=== PATIENT | female | born 1980 | race Two or more races ===

== ENCOUNTER 2020-10-10 10:05 | Outpatient (REF) | payer OTHER, SELFPAY ==
--- NOTE | ~2020-10-10 | MM_ITS ---
EXAMINATION: MM SCREENING DIGITAL BREAST TOMOSYNTHESIS, BILATERAL CLINICAL INFORMATION: Screening. Asymptomatic. No prior breast imaging. Age 39. No known family history breast cancer. The lifetime risk of breast cancer based on the Tyrer-Cuzick Model is 7%. COMPARISON: None (current study represents initial baseline exam). TECHNIQUE: Digital breast tomosynthesis is performed in both the craniocaudal and mediolateral oblique views along with computer-aided detection (CAD). Synthesized 2D images are generated from the tomosynthesis. FINDINGS: The breasts are heterogeneously dense, which may obscure small masses (ACR BI-RADS breast composition Category c). Breast tissue composition borders on average fibroglandular. There is inhomogeneous parenchymal pattern. The right breast shows no significant mass or architectural abnormality. Neither breast shows abnormal calcifications. The axilla and skin contours are unremarkable. The left CC view has benign-appearing circumscribed nodule 0.7 x 0.6 cm mid 9:00 position. Lesion not well appreciated on MLO view due to superimposed parenchymal density. Patient will be recalled for targeted ultrasound to fully characterize baseline appearance. MM/MM tomosynthesis screening BI IMPRESSION: 1. Left: Circumscribed nodule mid medial breast under 1 cm. 2. Right: No mammographic evidence of malignancy. ASSESSMENT: BI-RADS 0: Incomplete - Need Additional Imaging Evaluation RECOMMENDATION: 1. Targeted ultrasound left breast. 2. Radiology department staff will contact the patient for additional imaging. This patient's information was entered into a reminder system with a target due date for their next mammogram.
== END 2020-10-10 10:06 | disposition home or self-care (01) ==
LOC: HO.MAMMO 10:05
PROVIDERS: PCP Family Medicine; Visit Provider Family Medicine
DX: Z12.31 Encounter for screening mammogram for malignant neoplasm of breast (principal)
CPT/HCPCS: 77063; 77067

== ENCOUNTER 2020-10-15 13:01 | Outpatient (REF) | payer OTHER, SELFPAY ==
--- NOTE | ~2020-10-15 | US_ITS ---
EXAMINATION: US DIAGNOSTIC ULTRASOUND BREAST, LEFT CLINICAL INFORMATION: Circumscribed nodule 0.7 x 0.6 cm medial left breast at baseline exam. COMPARISON: Baseline mammography 10/10/2020. TECHNIQUE: Ultrasound left breast is targeted to the medial breast. Grayscale imaging and color Doppler are performed without and with harmonics. FINDINGS: There is no focal suspicious finding. There is no cystic or solid mass, architectural abnormality, duct ectasia, or edema in the soft tissue planes. There is no ultrasound correlate for the benign-appearing nodule noted at initial screening. Results are discussed with the patient at time of visit, using an diplomatic interpreter/translator. Management plan is for short interval follow-up left mammography in 6 months. US/US breast LT limited IMPRESSION: No ultrasound correlate for benign-appearing nodule medial left breast noted at baseline exam. ASSESSMENT: BI-RADS 3: Probably Benign RECOMMENDATION: Diagnostic left mammography in 6 months. This patient's information was entered into a reminder system with a target due date for their next mammogram.
== END 2020-10-15 13:02 | disposition home or self-care (01) ==
LOC: HO.MAMMO 13:01
PROVIDERS: Visit Provider Family Medicine
DX: N64.89 Other specified disorders of breast (principal)
CPT/HCPCS: 76642

== ENCOUNTER 2021-04-18 13:10 | Outpatient (REF) | payer OTHER, SELFPAY ==
--- NOTE | ~2021-04-18 | MM_ITS ---
EXAMINATION: MM DIAGNOSTIC DIGITAL BREAST TOMOSYNTHESIS, BILATERAL CLINICAL INFORMATION: Short interval six-month follow-up probable benign nodularity mid medial left breast initially noted at baseline exam. TC score 8%. COMPARISON: Mammography: 10/10/2020 (baseline); targeted left breast ultrasound 10/15/2020. TECHNIQUE: Digital breast tomosynthesis is performed in both the craniocaudal and mediolateral oblique views along with computer-aided detection (CAD). Synthesized 2D images are generated from the tomosynthesis. FINDINGS: The breasts are heterogeneously dense, which may obscure small masses (ACR BI-RADS breast composition Category c). Parenchymal pattern is similar to prior baseline exam. There is no developing density or interval mass or interval architectural abnormality. Small benign-appearing nodular asymmetry mid medial left breast best seen on tomography is similar in size. There are scattered punctate calcifications again seen. The axilla and skin contours are unremarkable. Results are provided to the patient at time of visit by the technologist. MM/MM tomosynthesis diagnostic LT IMPRESSION: There are no significant changes from prior baseline exam. ASSESSMENT: BI-RADS 3: Probably Benign RECOMMENDATION: Diagnostic mammography at time of annual exam, due in 6 months. This patient's information was entered into a reminder system with a target due date for their next mammogram.
== END 2021-04-18 13:11 | disposition home or self-care (01) ==
LOC: HO.MAMMO 13:10
PROVIDERS: Visit Provider Family Medicine
DX: N63.25 Unspecified lump in the left breast, overlapping quadrants (principal)
CPT/HCPCS: 77061; 77065

== ENCOUNTER 2021-10-17 12:53 | Outpatient (REF) | payer OTHER, SELFPAY ==
--- NOTE | ~2021-10-17 | MM_ITS ---
EXAMINATION: MM DIAGNOSTIC DIGITAL BREAST TOMOSYNTHESIS, BILATERAL CLINICAL INFORMATION: Due for yearly. Also follow-up probable benign ultrasound occult smooth nodular asymmetry mid medial left breast initially noted at baseline exam 2020. The lifetime risk of breast cancer based on the Tyrer-Cuzick Model is 9%. COMPARISON: Mammography: 04/18/2021, 10/10/2020 (baseline, BI-RADS 0); targeted left breast ultrasound 10/15/2020. TECHNIQUE: Digital breast tomosynthesis is performed in both the craniocaudal and mediolateral oblique views along with computer-aided detection (CAD). Synthesized 2D images are generated from the tomosynthesis. FINDINGS: The breasts are heterogeneously dense, which may obscure small masses (ACR BI-RADS breast composition Category c). Parenchymal pattern is similar to prior studies. There is no developing density or interval architectural changes. No abnormal calcifications. The small nodular asymmetric density mid medial left breast on CC tomography is stable. They will be reassessed again at next bilateral annual mammography to conclude long-term surveillance. The axilla and skin contours are unremarkable. Results are provided to the patient at time of visit by the technologist. MM/MM tomosynthesis diagnostic BI IMPRESSION: Left: -Benign-appearing nodular asymmetric density mid medial breast on CC tomography, stable. Right: -No mammographic evidence of malignancy. ASSESSMENT: BI-RADS 3: Probably Benign RECOMMENDATION: Diagnostic mammography at time of next annual exam, due in 12 months. This patient's information was entered into a reminder system with a target due date for their next mammogram.
== END 2021-10-17 12:54 | disposition home or self-care (01) ==
LOC: HO.MAMMO 12:53
PROVIDERS: PCP Family Medicine; Visit Provider Family Medicine
DX: N64.89 Other specified disorders of breast (principal)
CPT/HCPCS: 77062; 77066

== ENCOUNTER 2022-10-17 12:19 | Outpatient (REF) | payer SELFPAY ==
--- NOTE | ~2022-10-17 | MM_ITS ---
EXAMINATION: MM DIAGNOSTIC DIGITAL BREAST TOMOSYNTHESIS, BILATERAL CLINICAL INFORMATION: Left breast diagnostic 6 month follow-up small nodular asymmetric density, ultrasound of cold, concluding two-year surveillance. Patient is also due for bilateral screening examination. The lifetime risk of breast cancer based on the Tyrer-Cuzick Model is 8.8%. COMPARISON: Mammography: 10/17/2021, 04/18/2021, 10/10/2020 mammography, 10/15/2020 left breast ultrasound. TECHNIQUE: Digital breast tomosynthesis is performed in both the craniocaudal and mediolateral oblique views along with computer-aided detection (CAD). Synthesized 2D images are generated from the tomosynthesis. FINDINGS: The breasts are heterogeneously dense, which may obscure small masses (ACR BI-RADS breast composition Category c). There is a stable small nodular focal asymmetry in the mid medial left breast seen on the CC projection, entirely unchanged from prior exams. Again, no definitive correlate on the right MLO projection. This concludes two-year diagnostic follow-up, establishing benignity. No further follow-up recommended. The dense somewhat nodular parenchymal pattern is overall unchanged compared with prior studies. Fine loosely grouped punctate calcifications are again noted within the dense breast parenchyma bilaterally, suggesting benign etiology such as adenosis. No developing suspicious calcifications, masses, or architectural distortion. Results are provided to the patient at time of visit by the technologist. MM/MM tomosynthesis diagnostic BI IMPRESSION: Stable benign findings bilateral breasts. No findings suspicious for malignancy. Recommendation resume routine annual screening mammography. ASSESSMENT: BI-RADS BI-RADS 2 - Benign Findings RECOMMENDATION: 1 year F/U This patient's information was entered into a reminder system with a target due date for their next mammogram.
== END 2022-10-17 12:20 | disposition home or self-care (01) ==
LOC: HO.MAMMO 12:19
PROVIDERS: PCP Family Medicine; Visit Provider Family Medicine
DX: N64.89 Other specified disorders of breast (principal)
CPT/HCPCS: 77062; 77066

== ENCOUNTER → 2022-10-17 13:00 | Outpatient (BNV) | payer SELFPAY | PROVIDERS: PCP Family Medicine; Visit Provider Radiology Diagnostic Radiology | DX: N63.20 Unspecified lump in the left breast, unspecified quadrant (principal) | CPT/HCPCS: 77062; 77066 ==

== ENCOUNTER 2023-03-19 10:42 | Outpatient (REF) | payer OTHER, SELFPAY ==
--- NOTE | ~2023-03-19 | XR_ITS ---
EXAMINATION: XR CHEST CLINICAL INFORMATION: Chest pain COMPARISON: None available. TECHNIQUE: 2 views of the chest were obtained. FINDINGS: Trace left-sided pleural effusion with subjacent atelectasis. Right basilar atelectasis. No pneumothorax. Trachea is midline. Cardiac mediastinal silhouette is not enlarged. Osseous structures are intact. Soft tissues are unremarkable. XR/XR chest 2V IMPRESSION: 1. Trace left-sided pleural effusion with subjacent atelectasis. 2. Right basilar atelectasis.
== END 2023-03-19 10:43 | disposition home or self-care (01) ==
LOC: HO.HHCX 10:42
PROVIDERS: Visit Provider Family Medicine
DX: R07.89 Other chest pain (principal)
CPT/HCPCS: 71046

== ENCOUNTER 2023-03-25 09:17 | Outpatient (REF) | payer SELFPAY ==
--- NOTE | ~2023-03-25 | XR_ITS ---
EXAMINATION: XR CHEST CLINICAL INFORMATION: Blunted CP angle. COMPARISON: Chest 03/19/2023. TECHNIQUE: 2 views of the chest were obtained. FINDINGS: The lungs are expanded with mild blunting of left CP angle from pleural effusion or thickening. Rest of lungs are expanded and clear. Heart size and pulmonary vascularity is normal. No gross bony abnormality seen. XR/XR chest 2V IMPRESSION: Mild blunting of left CP angle from pleural effusion or thickening. No change from 03/19/2023
== END 2023-03-25 09:18 | disposition home or self-care (01) ==
LOC: HO.HHCX 09:17
PROVIDERS: Visit Provider Family Medicine
DX: R93.89 Abnormal findings on diagnostic imaging of other specified body structures (principal)
CPT/HCPCS: 71046

== ENCOUNTER 2024-03-23 08:42 | Outpatient (REF) | payer SELFPAY ==
[2024-03-23 11:08] LABS: MANUAL DIFF FLAG NO
[2024-03-23 11:15] LABS: Basophils Percent Auto 0.8 % (0-2); Eosinophils Absolute Auto 0.2 X10*3/uL (0.0-0.4); Eosinophils Percent Auto 4.5 % (0-4); Hematocrit 39.4 % (37.0-47.0); Hemoglobin 13.5 g/dl (12.0-16.0); Imm Gran Abs Auto 0.02 X10*3/uL (0.00-0.03); Imm Gran Pct Auto 0.4 % (0.0-0.4); Lymphocytes Absolute Auto 1.4 X10*3/uL (1.2-4.9); Lymphocytes Percent Auto 26.5 % (20-40); Mean Corpuscular HGB Conc 34.3 g/dl (31.0-35.0); Mean Corpuscular Hemoglobin 30.5 pg (27.0-33.0); Mean Corpuscular Volume 88.9 fL (80.0-98.0); Mean Platelet Volume 9.5 fL (9.4-12.3); Monocytes Absolute Auto 0.3 X10*3/uL (0.1-1.2); Monocytes Percent Auto 6.7 % (2-11); Neutrophils Absolute Auto 3.1 x10*3/uL (2.0-8.3); Neutrophils Percent Auto 61.1 % (45-73); Platelet Count 374 X10*3/uL (160-400); Red Blood Count 4.43 X10*6/uL (4.20-5.50); Red Cell Distribution Width 11.8 % (11.0-16.0); White Blood Count 5.1 X10*3/uL (4.8-10.8)
[2024-03-23 11:30] LABS: Alanine Aminotransferase 13 U/L (0-31); Albumin Level 4.1 g/dL (3.5-5.0); Alkaline Phosphatase 51 U/L (39-117); Anion Gap 6 (12-20); Aspartate Amino Transferase 23 U/L (5-31); Bilirubin Direct 0.1 mg/dL (0.0-0.5); Bilirubin Total 0.6 mg/dL (0.0-1.0); Blood Urea Nitrogen 9 mg/dL (9-16); Calcium 9.3 mg/dL (8.4-10.2); Carbon Dioxide 26 mmol/L (22-29); Chloride 111 mmol/L (96-108); Cholesterol 184 mg/dL (<200); Estimated Glomerular Filt Rate > 60; Glucose Random 96 mg/dL (60-115); HDL Cholesterol 32 mg/dL (>40); Iron 110 mcg/dL (30-160); LDL Cholesterol Calculated 120 mg/dL (<100); Percent Iron Saturation 37 % (15-50); Potassium 4.2 mmol/L (3.3-5.1); Sodium 139 mmol/L (135-145); Total Iron Binding Capacity 297 mcg/dL (228-428); Triglycerides 161 mg/dL (<150); Unsaturated Iron Binding 187 ug/dL
[2024-03-23 11:51] LABS: Ferritin 61 ng/mL (10-250); TSH reflex Free T4 1.17 uIU/mL (0.32-4.0)
== END 2024-03-23 08:43 | disposition home or self-care (01) ==
LOC: HO.HHCL 08:42
PROVIDERS: Visit Provider Family Medicine
DX: D50.9 Iron deficiency anemia, unspecified (principal); E78.5 Hyperlipidemia, unspecified
CPT/HCPCS: 36415; 80048; 80061; 80076; 82728; 83540; 84443; 85025

== ENCOUNTER 2024-04-11 10:43 | Outpatient (REF) | payer SELFPAY ==
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
--- OUTSIDE RECORDS SUMMARY | 2024-04-11 17:23 | XMS_ITS | Encounter Summary ---
Author Organization [employer] Address [address] [facility] [address] [place] [address] Care Team Providers Care Plastic Surgery Manager Name Role Phone Agueda Sebastian MD Primary Care Provider +1- [phone] Reason for Visit * Reason Comments Care Coordination CHW outreach for SDO H PT-1 and food needs-referral completed Encounter Details Date Type Department Care Team (Latest Contact Info) Description 03/30/2024 Patient Outreach [facility] [address] [place], [place] [phone] Agueda Sebastian MD [address] [place] [address] Care Coordination (CHW outreach for SDOH PT-1 and food needs-referral completed /) Social History Tobacco Use Types Packs/Day Years Used Date Smoking Tobacco: Never Smokeless Tobacco: Never Depression Answer Date Recorded Patient Health Questionnaire-9 Score 0 02/11/2023 Patient Health Questionnaire-9 Score 0 02/11/2023 Last PHQ-9: Questionnaire Data Not on file 1 04/14/2022 Housing Stability Answer Date Recorded What is [...] Date Recorded Patient Health Questionnaire-2 Score 0 02/11/2023 Internet Access Answer Date Recorded Internet Access Q1 Yes 03/29/2024 Internet Access Q2 Not on file 03/29/2024 Comments Unknown Sex and Gender Information Value Date Recorded Sex Assigned at Female 01/06/2022 10:19 AM EDT Legal Sex Female 10:19 AM EDT Gender Identity Female 01/06/2022 10:19 AM EDT Sexual Orientation Straight 01/06/2022 10 :19 AM EDT documented as of this encounter Progress Notes * Rajinder Gunter - 03/30/2024 10:00 AM EST CHW Rajinder Gunter, placed outbound call to patient for assistance with SDOH as a referral was received by the provider. Patient's name and were confirmed. Patient screened positive for the following SDOH food insecurities. CHW referral patient to the local list of pantries in the area for help. Patient verbalizes understanding, and able to agree with plan to follow up. Patient educated on ex tended clinic hours on Mondays through Wednesdays, and Walk-In Urgent Care Located in [facility].Patient provided with after-hours line for [facility], , which offer night time triage serviceand option to transfer to international trade compliance manager provider if needed. documented in this encounter Plan of Treatment Not on file documented as of this encounter Visit Diagnoses Not on filedocumented in this encounter Additional Health Concerns Assessment Noted Time PHQ-9 Depression Total Score: 0 02/12/20 23 11:26 AM EST documented as of this encounter Care Teams Plastic Surgery Manager Relationship Specialty Start Date End Date Agueda Sebastian MD [address] [place] [address] PCP - General Family Medicine 03/09/18 documented as of this encounter
--- OUTSIDE RECORDS SUMMARY | 2024-04-11 17:23 | XMS_ITS | Encounter Summary ---
Author Organization [employer] [facility] Address [address] [facility] 7t [place] [address] Care Team Providers Care Sld Inclusion Teacher Name Role Phone Agueda Sebastian MD Primary Care Provider +1- [phone] Reason for Visit * Reason Comments Pre-visit Planning SDOH Screening posit esau and Tobacco screening negative Encounter Details Date Type Department Care Team ([facility] st Contact Info) Description 03/29/2024 Patient Outreach [facility] [address] [place], [place] [phone] Agueda Sebastian MD [address] [place], [place] [phone] Pre-visit Planning (SDOH Screening positive and Tobacco screening negative) Social History Tobacco Use Types Packs/Day Years [...] as of this encounter Progress Notes * Radha Vega - 03/29/2024 10:51 AM EST NEEL Alexander placed successful outbound call to patient for pre-visit planning. Patient name and confirmed. Patient confirms appt date and time, and has transportation arrangements. Biggest concern for appointment at this time is no concerns. Patient advised to bring to appointment a photo id and insurance card. Appropriate screenings completed in anticipation of appointment. SDOH positive. Patient looking for assistance with Food insecurities. Referral will be placed. documented in this encounter Plan of Treatment Not on file documented as of this encounter Visit Diagnoses Not on filedocumented in this encounter Additional Health Concerns Assessment Noted Time PHQ-9 Depression Total Score: 0 02/12/20 23 11:26 AM EST documented as of this encounter Care Teams Sld Inclusion Teacher Relationship Specialty Start Date End Date Agueda Sebastian MD [address] [place] [address] PCP - General Family Medicine 03/09/18 documented as of this encounter
--- OUTSIDE RECORDS SUMMARY | 2024-04-11 17:23 | XMS_ITS | Encounter Summary ---
Author Organization [employer] [facility] Address [address] [facility] 7t [place] [address] Care Team Providers Care Fast Food Assistant Restaurant Manager Name Role Phone Agueda Sebastian MD Primary Care Provider +1- [phone] Reason for Visit * Reason Onset Date Comments Chart Prep 04/08/2024 Encounter Details Date Type Department Care Team (Late st Contact Info) Description 04/08/2024 Telephone [facility] [address] [place] [address] Agueda Sebastian MD [address] [place], [place] [phone] Chart Prep Social History Tobacco Use Types Packs/Day Years Used Date Smoking Tobacco: Never Smokeless Tobacco: Never Depression Answer Date Recorded Patient Health Questionnaire-9 Score 0 02/11/2023 Patient Health Questionnaire-9 Score 0 02/11/2023 Last PHQ-9: Questionnaire Data Not on file 1 04/14/2022 Housing Stability Answer Date Recorded What is your housing situation today? I have uli lisa 03/29/[address] you li [...] AM EDT documented as of this encounter Miscellaneous Notes * Telephone Encounter - Risa Brito [place] - 04/08/2024 10:05 AM EST Chart Prep Labs: done Images: done Vaccines due: Covid Due, Hep B Due, and Flu Due Referrals: Not Applicable Screenings: PAP Overdue care gaps: Sbirt and PHQ-9 Chart prep for upcoming appt with complete. LB documented in this encounter Plan of Treatment Not on file documented as of this encounter Visit Diagnoses Not on filedocumented in this encounter Additional Health Concerns Assessment Noted Time PHQ-9 Depression Total Score: 0 02/12/20 23 11:26 AM EST documented as of this encounter Care Teams Fast Food Assistant Restaurant Manager Relationship Specialty Start Date End Date Agueda Sebastian MD [address] [place] [address] PCP - General Family Medicine 03/09/18 documented as of this encounter
--- OUTSIDE RECORDS SUMMARY | 2024-04-11 17:23 | XMS_ITS | Encounter Summary ---
Author Organization [employer] [facility] Address [address] [facility] 7[address] [place] [address] Care Team Providers Care Financial Officer Name Role Phone Agueda Sebastian MD Primary Care Provider +1- [phone] Encounter Details Date Type Department Care Team (Late st Contact Info) Description 05/06/2022 Abstract [facility] [address] [place], [place] [phone] Agueda Sebastian MD [address] [place], [place] [phone] Social History Tobacco Use Types Packs/Day Years Used Date Smoking Tobacco: Never Assessed Comments Unknown Sex and Gender Information Value Date Recorded Sex Assigned at Female 01/06/2022 10:19 AM EDT Legal Sex Female 10:19 AM EDT Gender Identity Female 01/06/2022 10:19 AM EDT Sexual Orientation Straight 01/06/2022 10 :19 AM EDT documented as of this encounter Plan of Treatment Not on file documented as of this encounter Procedures Procedure Name Priority Date/Time Associated Diagnosis Comments MAMMOGRAPHY Routine 10/17/2021 PAP SMEAR Routine 11/12/2018 12:00 AM EDT HIV-1 ANTIBODY, EIA Routine 07/07/2018 documented in this encounter Results * Mammography (10/17/2021) Mammogram BIRADS 3 Anatomical Region Laterality Modality Other us Historical Provider HEALTH MAINTENANCE Final Result * Pap Smear (11/12/2018 12:00 AM EDT) Swab us Historical Provider LAB CYTOLOGY ORDERABLES F inal Result IMAGING * HIV-1 antibody, EIA (07/07/2018) External HIV-1 Antibody Negative Blood Venous blood specimen / Unknown us Historical Provider LAB BLOOD ORDERABLES Kelsey l Result documented in this encounter Visit Diagnoses Not on filedocumented in this encounter Care Teams Financial Officer Relationship Specialty Start Date End Date Agueda Sebastian MD [address] [place] [address] PCP - General Family Medicine 03/09/18 documented as of this encounter
--- OUTSIDE RECORDS SUMMARY | 2024-04-11 17:24 | XMS_ITS | Encounter Summary ---
Author Organization [employer] [facility] Address [address] [facility] [address] [place] [address] Care Team Providers Care Automobile Mechanic Supervisor Name Role Phone Agueda Sebastian MD Primary Care Provider +1- [phone] Encounter Details Date Type Department Care Team (Latest Contact Info) Description 04/11/2024 Travel Social History Tobacco Use Types Packs/Day Years Used Date Smoking Tobacco: Never Passive Smoke Exposure: Never Smokeless Tobacco: Never Depression Answer Date [...] documented as of this encounter Care Teams Automobile Mechanic Supervisor Relationship Specialty Start Date End Date Agueda Sebastian MD [address] [place] [address] PCP - General Family Medicine 03/09/18 documented as of this encounter
--- OUTSIDE RECORDS SUMMARY | 2024-04-11 17:24 | XMS_ITS | Encounter Summary ---
Author Organization [employer] Address [address] [facility] [address] [place] [address] Care Team Providers Care Wharfinger Chief Name Role Phone Agueda Sebastian MD Primary Care Provider +1- [phone] Encounter Details Date Type Department Care Team (Late st Contact Info) Description 03/16/2024 Telephone [facility] [address] [place] [address] Agueda Sebastian MD [address] [place] [address] Social History Tobacco Use Types Packs/Day Years Used Date Smoking Tobacco: Never Smokeless Tobacco: Never Depression Answer Date Recorded Patient Health Questionnaire-9 Score 0 02/11/2023 Patient Health Questionnaire-9 Score 0 02/11/2023 Last PHQ-9: Questionnaire Data Not on file 1 04/14/2022 Housing Stability Answer Date Recorded What is your housing situation today? I have ulilibertad gonzalez 02/11/[address] you li ve. Do you have problems with any of the following? None of the above 02/11/2023 Food Insecurity Answer Date Recorded Within the past 12 months, y ou worried that your food would run out before you got money to buy more: Never True 02/11/2023 Within the past 12 months,th e food you bought just didn't last and you didn't have enough money to get more: Never True 08/2022 Transportation Answer Date Recorded In the past 12 months, has l ack of transportation kept you from medical appts, meetings, work or from getting things needed for daily living? No 02/11/2023 Utilities Answer Date Recorded In the past 12 months, has t he electric, gas, oil or water company threatened to shut off services in your home? No 02/11/2023 Depression Answer Date Recorded Patient Health Questionnaire-2 Score 0 02/11/2023 Comments Unknown Sex and Gender Information Value Date Recorded Sex Assigned at Female 01/06/2022 10:19 AM EDT Legal Sex Female 10:19 AM EDT Gender Identity Female 01/06/2022 10:19 AM EDT Sexual Orientation Straight 01/06/2022 10 :19 AM EDT documented as of this encounter Miscellaneous Notes * Telephone Encounter - Sasha Yu MA - 03/18/2024 11:00 AM EST Lvm letting pt know that she is all set to get fasting labs done before her scheduled PE in Apr. * Telephone Encounter - Agueda Sebastian MD - 03/16/2024 7:57 AM EST Please let Shoshana know I sent a lab slip. Please ask her if she can get fasting labs before her appointment in Apr. Please also let her know she is due for pap and we can do it at the visit if shewould like. Thank you. documented in this encounter Plan of Treatment Not on file documented as of this encounter Visit Diagnoses Not on filedocumented in this encounter Additional Health Concerns Assessment Noted Time PHQ-9 Depression Total Score: 0 02/12/20 23 11:26 AM EST documented as of this encounter Care Teams Wharfinger Chief Relationship Specialty Start Date End Date Agueda Sebastian MD [address] [place] [id number] PCP - General Family Medicine 03/09/18 documented as of this encounter
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
[2024-04-14 12:54] LABS: C. trachomatis RNA TMA NOT DETECTED (NOT DETECTED); N. gonorrhoeae RNA TMA NOT DETECTED (NOT DETECTED); Trichomonas (NAAT) NOT DETECTED (NOT DETECTED)
== END 2024-04-11 10:44 | disposition home or self-care (01) ==
LOC: HO.LNP 10:43
PROVIDERS: Visit Provider Family Medicine
DX: Z11.3 Encounter for screening for infections with a predominantly sexual mode of transmission (principal)
CPT/HCPCS: 87491; 87591; 87626; 87661; 88175

== ENCOUNTER 2024-04-12 09:10 | Outpatient (REF) | payer SELFPAY ==
[2024-06-15 11:23] LABS: HPV Genotype 16 Negative (Negative); HPV Genotype 18 Negative (Negative); HPV High Risk Negative (Negative)
--- OUTSIDE RECORDS SUMMARY | 2024-10-04 07:48 | XMS_ITS | Encounter Summary ---
Author Organization [employer] Address [address] [facility] [address] [place] [address] Care Team Providers Care Community Health Advisor Name Role Phone Agueda Sebastian MD Primary Care Provider [phone] Encounter Details Date Type Department Care Team (Late st Contact Info) Description 05/06/2022 Abstract [facility] MEDICINE [address], [place] [phone] Agueda Sebastian MD [address], [place] [phone] Social History Tobacco Use Types Packs/Day Years [...] BIRADS 3 Anatomical Region Laterality Modality Other Historical Provider HEALTH MAINTENANCE Final Result * Pap Smear (11/12/2018 12:00 AM EDT) Swab Historical Provider LAB CYTOLOGY ORDERABLES F inal Result IMAGING * HIV-1 antibody, EIA (07/07/2018) External HIV-1 Antibody Negative Blood Venous blood specimen / Unknown us Historical Provider LAB BLOOD ORDERABLES Kelsey l Result documented in this encounter Visit Diagnoses Not on filedocumented in this encounter Care Teams Community Health Advisor Relationship Specialty Start Date End Date Agueda Sebastian MD [address] [place] [id number] PCP - General Family Medicine 03/09/18 documented as of this encounter
== END 2024-04-12 09:11 | disposition home or self-care (01) ==
LOC: HO.LNP 09:10
PROVIDERS: Visit Provider Family Medicine
DX: Z13.89 Encounter for screening for other disorder (principal)
CPT/HCPCS: 87626; 88175